=== PATIENT | female | born 1995 | race Caucasian/White ===

== ENCOUNTER 2020-08-31 16:02 | Emergency (ER) | payer BC, OTHER | END 2020-08-31 17:57 | disposition home or self-care (01) | LOC: ERS 16:02 | DX: F41.9 Anxiety disorder, unspecified (principal); Z04.1 Encounter for examination and observation following transport accident | CPT/HCPCS: 99284 ==

== ENCOUNTER 2022-10-07 15:01 | Outpatient (CLI) | payer BC | END 2022-10-07 15:02 | disposition home or self-care (01) | LOC: SCSMRI 15:01 | PROVIDERS: ATTEND Family Medicine | DX: G43.909 Migraine, unspecified, not intractable, without status migrainosus (principal); J34.89 Other specified disorders of nose and nasal sinuses | CPT/HCPCS: 70553 ==

== ENCOUNTER 2022-11-22 13:12 | Outpatient (CLI) | payer BC ==
[2022-11-22 14:27] LABS: BHCG - Serum Negative (NEGATIVE); Pregs Control Background? CLEAR/WHITE (CLR/WHITE); Pregs Control Bar Appear? YES (CONTROL BAR)
== END 2022-11-22 13:13 | disposition home or self-care (01) ==
LOC: LABBT 13:12
PROVIDERS: ATTEND Otolaryngology Plastic Surgery within the Head & Neck
DX: Z01.812 Encounter for preprocedural laboratory examination (principal); J34.3 Hypertrophy of nasal turbinates; J32.3 Chronic sphenoidal sinusitis; J01.01 Acute recurrent maxillary sinusitis; J01.11 Acute recurrent frontal sinusitis; J01.21 Acute recurrent ethmoidal sinusitis
CPT/HCPCS: 84703; 85014

== ENCOUNTER 2022-11-23 10:09 | Day surgery (SDC) | payer BC ==
[2022-11-22 13:51] VITALS: BMI 42.9
[2022-11-23] MEDS ORDERED: EPINEPHrine 1 MG/ML AMP ONE ×2 (12:05→12:10)
[2022-11-23] MEDS ORDERED: Oxymetazoline HCl 0.05% (30 ML BOT) ONE ×3 (12:05→12:11)
[2022-11-23] MEDS ORDERED: Lidocaine 1% (PF) 30 ML VIAL ONE ×2 (12:05→12:10)
[2022-11-23] MEDS ORDERED: Lidocaine 1% MPF 2 ML VIAL ONE (12:07)
[2022-11-23] MEDS ORDERED: fentaNYL 50 mcg/mL 1 mL Vial ONE ×3 (12:13→13:46)
[2022-11-23] MEDS ORDERED: Ondansetron PF 4 MG/2 ML Vial ONE (12:39)
[2022-11-23] MEDS ORDERED: NEOSTIGMINE 3 MG/3 ML SYR 3 MG/3 ML SYRINGE ONE (12:39)
[2022-11-23] MEDS ORDERED: Rocuronium Bromide 10 MG/ML (10ML VIAL) ONE (12:39)
[2022-11-23] MEDS ORDERED: Lidocaine 1% PF 5 ML VIAL ONE (12:39)
[2022-11-23] MEDS ORDERED: Glycopyrrolate 0.2 MG/ML 5 ML SYRINGE ONE (12:39)
[2022-11-23] MEDS ORDERED: PROPOFOL 200 MG/20 ML VIAL ONE (12:39)
[2022-11-23] MEDS ORDERED: Dexamethasone 20 MG/5 ML VIAL ONE (12:39)
== END 2022-11-23 15:00 | disposition home or self-care (01) ==
LOC: SDC 10:09
PROVIDERS: ATTEND Otolaryngology Plastic Surgery within the Head & Neck
PROC: 09BL8ZZ Excision of Nasal Turbinate, Via Natural or Artificial Opening Endoscopic (ICD-10-PCS; principal; 2022-11-23)
PROC: 099V8ZZ Drainage of Left Ethmoid Sinus, Via Natural or Artificial Opening Endoscopic (ICD-10-PCS; principal; 2022-11-23)
DX: J34.3 Hypertrophy of nasal turbinates (principal); J32.3 Chronic sphenoidal sinusitis; J01.01 Acute recurrent maxillary sinusitis; J01.11 Acute recurrent frontal sinusitis; J01.21 Acute recurrent ethmoidal sinusitis; F41.9 Anxiety disorder, unspecified; F32.A Depression, unspecified; Z79.899 Other long term (current) drug therapy; R51.9 Headache, unspecified
CPT/HCPCS: J0171; J1100; J2001; J2405; J2704; J3010